=== PATIENT | female | born 1940 | race Two or more races ===

== ENCOUNTER 2018-08-27 14:25 | Inpatient (IN) | payer OTHER ==
[~2018-08-27] VITALS: Ht 157.5 cm; Wt 59.6 kg
[2018-08-27 16:07] LABS: INTERNATIONAL NORMALIZED RATIO 1.12 (0.93-1.1); PROTHROMBIN TIME 11.6 Seconds (9.6-11.5)
[2018-08-27 16:08] LABS: ALBUMIN 3.6 g/dL (3.4-5.0); ANION GAP 11 mmol/L (5-15); CALCIUM 8.6 mg/dL (8.5-10.1); CHLORIDE 107 mmol/L (98-107)
[2018-08-27 16:13] LABS: ALANINE AMINOTRANSFERASE 43 U/L (12-78); ALKALINE PHOSPHATASE 60 U/L (45-117); BILIRUBIN,TOTAL 0.8 mg/dL (0.2-1.0); CREATININE 0.81 mg/dL (0.55-1.02); TOTAL PROTEIN 7.1 g/dL (6.4-8.2)
[2018-08-27 16:29] LABS: BASOPHILS # (AUTO) 0.05 x10^3/uL (0-0.1); BASOPHILS % (AUTO) 1 % (0-1); EOSINOPHILS % (AUTO) 6 % (1-7); LYMPHOCYTES # (AUTO) 2.55 x10^3/uL (1-3.4); LYMPHOCYTES % (AUTO) 36 % (22-44); MD NO; MEAN CORPUSCULAR HEMOGLOBIN 29.9 pg (27.0-34.8); MEAN CORPUSCULAR HGB CONC 32.8 g/dL (32.4-35.8); MEAN CORPUSCULAR VOLUME 91.1 fL (80-100); MEAN PLATELET VOLUME 8.4 fL (7.4-10.4); MONOCYTES # (AUTO) 0.43 x10^3/uL (0.2-0.8); MONOCYTES % (AUTO) 6 % (2-9); NEUTROPHILS # (AUTO) 3.71 x10^3/uL (1.8-6.8); NEUTROPHILS % (AUTO) 52 % (42-75); PLATELET COUNT 307 x10^3/uL (130-400); RED BLOOD COUNT 4.11 x10^6/uL (3.82-5.3); RED CELL DISTRIBUTION WIDTH 12.3 % (9.6-15.2)
[2018-08-27] MEDS ORDERED: AMLO10TA6 PO (17:03)
[2018-08-27] MEDS ORDERED: ASPI-515 PO (17:05)
[2018-08-27] MEDS ORDERED: PANT40TA5 PO (17:05)
[2018-08-27] MEDS ORDERED: METF500T17 PO (17:06)
[2018-08-27] MEDS ORDERED: LISI-167 PO (17:08)
[2018-08-27] MEDS ORDERED: ROSU10TA PO (17:09)
[2018-08-27] MEDS ORDERED: NOVOLOG SS (17:10)
[2018-08-27] MEDS ORDERED: INSU3INS2 SC (17:12)
[2018-08-27] MEDS ORDERED: GOLYTELY 4,000ML ORAL.SOL PO ONE ×2 (17:30)
[2018-08-27] MEDS ORDERED: ACETAMINOPHEN 325 MG TABLET PO PRN (18:00)
[2018-08-27] MEDS ORDERED: ONDANSETRON ODT 4 MG PO PRN (18:00)
[2018-08-27 20:10] VITALS: BP 137/63
[2018-08-27 20:25] LABS: HEMOGLOBIN A1C 8.4 % (4.2-6.3)
[2018-08-27] MEDS: SODIUM CHLORIDE 0.9% 1,000 ML IV SCH (20:32)
[2018-08-27] MEDS: ATORVASTATIN 20 MG TABLET PO SCH (20:35)
[2018-08-27] MEDS: INSULIN LISPRO 100 UNITS/ML, PEN SQ-INSULIN SCH (20:35)
[2018-08-27 21:00] VITALS: BP 137/63
[2018-08-28 01:23] VITALS: BP 117/39
[2018-08-28 05:26] LABS: BASOPHILS # (AUTO) 0.06 x10^3/uL (0-0.1); BASOPHILS % (AUTO) 1 % (0-1); EOSINOPHILS # (AUTO) 0.45 x10^3/uL (0-0.4); EOSINOPHILS % (AUTO) 6 % (1-7); LYMPHOCYTES # (AUTO) 2.96 x10^3/uL (1-3.4); LYMPHOCYTES % (AUTO) 42 % (22-44); MD NO; MEAN CORPUSCULAR HGB CONC 34.2 g/dL (32.4-35.8); MEAN CORPUSCULAR VOLUME 90.5 fL (80-100); MEAN PLATELET VOLUME 7.9 fL (7.4-10.4); MONOCYTES # (AUTO) 0.44 x10^3/uL (0.2-0.8); MONOCYTES % (AUTO) 6 % (2-9); NEUTROPHILS # (AUTO) 3.15 x10^3/uL (1.8-6.8); NEUTROPHILS % (AUTO) 45 % (42-75); PLATELET COUNT 282 x10^3/uL (130-400); RED BLOOD COUNT 3.28 x10^6/uL (3.82-5.3); RED CELL DISTRIBUTION WIDTH 12.2 % (9.6-15.2)
[2018-08-28 05:33] LABS: CHLORIDE 109 mmol/L (98-107)
[2018-08-28 05:39] LABS: ALANINE AMINOTRANSFERASE 35 U/L (12-78); ALBUMIN 2.9 g/dL (3.4-5.0); ALKALINE PHOSPHATASE 37 U/L (45-117); ANION GAP 8 mmol/L (5-15); BILIRUBIN,TOTAL 0.6 mg/dL (0.2-1.0); CALCIUM 7.7 mg/dL (8.5-10.1); CREATININE 0.56 mg/dL (0.55-1.02); TOTAL PROTEIN 5.7 g/dL (6.4-8.2)
[2018-08-28] MEDS: INSULIN LISPRO 100 UNITS/ML, PEN SQ-INSULIN SCH ×4 (06:00→17:58)
[2018-08-28 07:51] VITALS: BP 126/65
[2018-08-28] MEDS ORDERED: FENTANYL PF 100 MCG/2ML ONE ×2 (08:33)
[2018-08-28] MEDS ORDERED: MIDAZOLAM 1 MG/ML, 5ML ONE ×2 (08:33)
[2018-08-28] MEDS ORDERED: EPINEPHRINE SYRINGE 0.1 MG/ML, 10ML ONE (10:22)
[2018-08-28] MEDS ORDERED: POTASSIUM CHLORIDE 40 MEQ in SODIUM CHLORIDE 0.9% 500 ML IV ONE (10:30)
[2018-08-28] MEDS: AMLODIPINE 10 MG TAB PO SCH (10:56)
[2018-08-28] MEDS: LISINOPRIL 10 MG TABLET PO SCH (10:56)
[2018-08-28] MEDS: PANTOPROZOLE 40MG TABLET PO SCH (10:56)
[2018-08-28 13:17] VITALS: BP 123/63
[2018-08-28] MEDS: SODIUM CHLORIDE 0.9% 1,000 ML IV SCH (16:00)
[2018-08-28 19:08] VITALS: BP 104/61
[2018-08-28] MEDS: ATORVASTATIN 20 MG TABLET PO SCH (20:00)
[2018-08-29] MEDS: INSULIN LISPRO 100 UNITS/ML, PEN SQ-INSULIN SCH ×3 (00:16→11:36)
[2018-08-29 01:43] VITALS: BP 113/63
[2018-08-29] MEDS: SODIUM CHLORIDE 0.9% 1,000 ML IV SCH (04:54)
[2018-08-29 05:02] LABS: BASOPHILS # (AUTO) 0.04 x10^3/uL (0-0.1); BASOPHILS % (AUTO) 1 % (0-1); EOSINOPHILS % (AUTO) 6 % (1-7); LYMPHOCYTES # (AUTO) 2.92 x10^3/uL (1-3.4); LYMPHOCYTES % (AUTO) 47 % (22-44); MD NO; MEAN CORPUSCULAR HEMOGLOBIN 30.7 pg (27.0-34.8); MEAN CORPUSCULAR HGB CONC 33.5 g/dL (32.4-35.8); MEAN CORPUSCULAR VOLUME 91.6 fL (80-100); MONOCYTES # (AUTO) 0.34 x10^3/uL (0.2-0.8); MONOCYTES % (AUTO) 6 % (2-9); NEUTROPHILS # (AUTO) 2.47 x10^3/uL (1.8-6.8); NEUTROPHILS % (AUTO) 40 % (42-75); PLATELET COUNT 278 x10^3/uL (130-400); RED BLOOD COUNT 3.18 x10^6/uL (3.82-5.3); RED CELL DISTRIBUTION WIDTH 12.6 % (9.6-15.2)
[2018-08-29 06:39] VITALS: BP 137/74
[2018-08-29] MEDS: PANTOPROZOLE 40MG TABLET PO SCH (08:10)
[2018-08-29] MEDS: AMLODIPINE 10 MG TAB PO SCH (08:11)
[2018-08-29] MEDS: LISINOPRIL 10 MG TABLET PO SCH (08:11)
== END 2018-08-29 14:18 | disposition home or self-care (01) | DRG 378 ==
LOC: ED 16:59 → EDIP 17:00 → ED 17:06 → 3NE 18:28
PROVIDERS: ADMIT Hospitalist; ATTEND Hospitalist
PROC: 0W3P8ZZ Control Bleeding in Gastrointestinal Tract, Via Natural or Artificial Opening Endoscopic (ICD-10-PCS; principal; 2018-08-28 08:48)
DX: K62.5 Hemorrhage of anus and rectum (principal); E44.0 Moderate protein-calorie malnutrition; K76.0 Fatty (change of) liver, not elsewhere classified; E11.65 Type 2 diabetes mellitus with hyperglycemia; E78.5 Hyperlipidemia, unspecified; E87.6 Hypokalemia; D12.2 Benign neoplasm of ascending colon; I10 Essential (primary) hypertension; Z79.4 Long term (current) use of insulin; Z86.010 Personal history of colon polyps; Z98.49 Cataract extraction status, unspecified eye; Z68.24 Body mass index [BMI] 24.0-24.9, adult
CPT/HCPCS: 36415; 80053; 82962; 83036; 85014; 85018; 85025; 85610; 85730; 86850; 86900; 99152; 99153; 99285; G0378; J2250; J3010; J3480; J7030; J7040